=== PATIENT | male | born 1950 | race Caucasian/White ===

== ENCOUNTER 2025-03-01 06:05 | Day surgery (SDC) | payer MEDICARE, OTHER ==
[2025-02-28 12:42] VITALS: BMI 27.9
[~2025-03-01 06:05] MED LIST: Fluorouracil 100 MG, Enoxaparin 25 MG, EPINEPHrine 0.3 MG in Ophthalmic Irrigation Solu... IRR SCH
[2025-03-01] MEDS ORDERED: PHENYLephrine 2.5% Ophth Soln 15 ml Bottle ONE (06:22)
[2025-03-01] MEDS ORDERED: Cyclopentolate 1% Opth Drop 2 ML BOT ONE (06:23)
[2025-03-01] MEDS ORDERED: PROPOFOL 20 ML ONE (07:25)
[2025-03-01] MEDS ORDERED: Lidocaine 1% PF 5 ML VIAL ONE ×2 (07:25→08:20)
[2025-03-01] MEDS ORDERED: GLYCOPYRROLATE/PF 0.2 MG/ML VIAL ONE (07:47)
[2025-03-01] MEDS ORDERED: CEFAZOLIN 1 GM VIAL ONE (08:20)
[2025-03-01] MEDS ORDERED: Triamcinolone 40 MG/ML VIAL ONE (08:20)
[2025-03-01] MEDS ORDERED: Maxitrol 0.1% Opth Oint 3.5 GM TUBE ONE (08:20)
== END 2025-03-01 09:15 | disposition home or self-care (01) ==
LOC: SDC 06:05
PROVIDERS: ATTEND Ophthalmology Retina Specialist
PROC: 08T53ZZ Resection of Left Vitreous, Percutaneous Approach (ICD-10-PCS; principal; 2025-03-01)
PROC: 08NF3ZZ Release Left Retina, Percutaneous Approach (ICD-10-PCS; 2025-03-01)
DX: H35.371 Puckering of macula, right eye (principal); Z98.890 Other specified postprocedural states
CPT/HCPCS: 67041; J0171; J0690; J1650; J2704; J3301; J3490; J9190